=== PATIENT | female | born 1960 | race African-American/Black ===

== ENCOUNTER → 2018-03-19 | Outpatient (CLI) | payer OTHER | END | disposition home or self-care (01) | LOC: ECHO 08:07 | DX: I48.0 Paroxysmal atrial fibrillation (principal); I08.1 Rheumatic disorders of both mitral and tricuspid valves | CPT/HCPCS: 93306 ==

== ENCOUNTER → 2018-12-26 | Outpatient (CLI) | payer OTHER ==
[~2018-12-26] MED LIST: CELE200C PO; GABA300C18 PO; TRAM50TA PO
--- NOTE | 2018-12-26 15:06 | KCIC ---
Bilateral digital screening mammograms with 3-D tomosynthesis: Reason for examination: Routine screening. Comparison is made to previous studies dated 08/25/2016 and 08/10/2014. Bilateral mammograms in CC and oblique projections were obtained with 2-D imaging and 3-D tomosynthesis imaging on a Siemens Inspiration unit and reviewed on the workstation. Interpretation was made with the benefit of CAD. The skin and nipples show no abnormalities. No abnormal axillary lymph nodes are seen. The breast parenchyma shows scattered fatty and fibroglandular density. (Breast density: Category B.) There are no dominant masses, suspicious calcifications or architectural distortion. Impression: No evidence of malignancy. Recommend routine screening. BI-RAD Category 1: Negative. "Our facility is accredited by the [employer] Mammography Program." This patient's information has been entered into a reminder system for the patient to be notified with the results of her examination and a target date for the next mammogram. Electronically signed by: Shania Joseph MD (12/26/2018 3:04 PM) [facility]
== END | disposition home or self-care (01) ==
LOC: KCIC MAMMO 13:49
PROVIDERS: ATTEND Family Medicine
DX: Z12.31 Encounter for screening mammogram for malignant neoplasm of breast (principal)
CPT/HCPCS: 77063; 77067

== ENCOUNTER → 2019-04-02 | Outpatient (CLI) | payer OTHER ==
--- NOTE | 2019-04-10 03:05 | EEG ---
DATE OF SERVICE: 04/02/2019 EEG NUMBER: [id number]. OBJECTIVE: This is a 59-year-old -[place] female patient with complaint of abnormal feeling of parosmia. An EEG was requested to help rule out seizure. METHODS: Twenty electrodes were applied according to the international 10-20 electrode placement system. EKG monitoring, hyperventilation, intermittent photic stimulation, monopolar and bipolar montages were routinely utilized. The record was obtained on a digital system with video monitoring. FINDINGS: 1. Background: The patient was recorded in the awake and drowsy states. No actual sleep state was recorded. The overall background amplitude is 10-20 microvolts. A posterior dominant rhythm of 8-10 Hz is observed. 2. Abnormalities: No specific epileptiform discharge or electrographic seizure is seen. No focal or diffuse slowing. 3. Activation: Hyperventilation was performed with fair efforts and normal response. Intermittent photic stimulation was performed with photic driving. No specific epileptiform discharge or electrographic seizure induced by hyperventilation or intermittent photic stimulation. IMPRESSION: This EEG is a normal study for the awake and drowsy states. No sleep state was recorded. No focal, lateralizing, specific epileptiform discharge or electrographic seizure is seen. ETIENNE DELGADO MD DR: HUYEN/herbie JOB#: [id number] / [id number] BI
== END | disposition home or self-care (01) ==
LOC: RT 07:43
PROVIDERS: ATTEND Psychiatry & Neurology Neurology
DX: G47.50 Parasomnia, unspecified (principal)
CPT/HCPCS: 95816

== ENCOUNTER → 2019-06-10 | Outpatient (CLI) | payer OTHER ==
--- NOTE | 2019-06-23 13:37 | EEG ---
DATE OF SERVICE: EEG REPORT EEG DATE: 06/10/2019 to 06/11/2019 EEG NUMBER: [id number] OBJECTIVE: This is a 59-year-old -[place] female patient with history of abnormal sense of smelling odors almost on a daily basis. EEG was requested to help rule out seizure. METHODS: A 22 electrodes were applied according to the international 10-20 electrode placement system. EKG monitoring, hyperventilation, intermittent photic stimulation, monopolar and bipolar montages are routinely utilized. The record was obtained on a digital system with video monitoring. This is a long-term video EEG study with a total video monitoring and EEG recording time of 24 hours and 17 minutes. FINDINGS: 1. Background: The patient was recorded in the awake, drowsy, and sleep states. The overall background amplitude is 10-30 microvolts. A posterior dominant rhythm of 8-9 Hz is observed. 2. Abnormalities: No specific epileptiform discharge or electrographic seizure is seen. No focal or diffuse slowing. 3. Activation: Hyperventilation was performed with good efforts and normal response. Intermittent photic stimulation was performed with photic driving. No specific epileptiform discharge or electrographic seizure induced by hyperventilation or intermittent photic stimulation. IMPRESSION: This is a long-term video EEG study with total video monitoring and EEG recording time of 24 hours and 17 minutes from 06/10/2019 to 06/11/2019. This long-term video EEG study is a normal study for the awake, drowsy, and sleep states. No focal, lateralizing, specific epileptiform discharge or electrographic seizure is seen. ETIENNE DELGADO MD DR: HUYEN/herbie JOB#: [id number] / [id number] BI
== END | disposition home or self-care (01) ==
LOC: SLPLAB 05:44
PROVIDERS: ATTEND Psychiatry & Neurology Neurology
DX: R43.8 Other disturbances of smell and taste (principal)
CPT/HCPCS: 95951

== ENCOUNTER → 2019-07-21 | Outpatient (CLI) | payer OTHER ==
[~2019-07-21] MED LIST changes: +CONTRAST GIVEN. MC PRN; +IOHEXOL 180 MG/ML 10 ML VIAL. IT ONE; +LIDOCAINE 1% Multi-Dose 20 ML VIAL. ID ONE
--- NOTE | 2019-07-21 16:06 | KCIC ---
Lumbar Myelogram History: Lumbar radiculopathy into the right leg for 2 years Technique: Patient was informed of the risks of the procedure to include pain, infection, bleeding, seizures, nerve root injury, and allergic reaction to the contrast. All questions were answered. Patient signed a written consent form for a lumbar myelogram. The patient was placed in a prone oblique position on the fluoroscopy table. External site of the lower back was prepped and draped in the usual sterile fashion. Betadine was utilized for cleansing solution. 1% lidocaine was utilized for local anesthesia at the anticipated site of puncture right L2-3 interlaminar space. A 19-gauge guiding needle was advanced into the soft tissues. Through the guiding needle, a 25 gauge Allan needle was advanced until there was return of cerebral spinal fluid. Approximately 15 cc of Omnipaque 180 were then injected during fluoroscopic visualization. The needles were removed. Bandage was applied. Fluoroscopic spot images including standing images were acquired of the lumbar spine. The patient was then transferred to the CT department for CT examination of the lumbar spine. There were no immediate complications. Fluoroscopy time: 1 minute 14 seconds, 19 images Findings: There is no evidence of myelographic block. There are lateral extradural defects bilaterally at L4-5, also anterior extradural defect at this level with mild to moderate attenuation of the thecal sac. There is grade 1 anterior spondylolisthesis at L4-5 fairly similar with flexion and extension. There is degenerative disc disease greatest at L5-S1 and to a lesser degree at L4-5. There are minimal anterior extradural defects L3-4 and L2-3. There are thoracic spinal stimulator leads. Impression: 1. There is anterior extradural defect as well as lateral extradural defects at L4-5 with mild to moderate attenuation of the thecal sac. There is grade 1 anterior spondylolisthesis at L4-5. There is degenerative disc disease greatest L4-5 and L5-S1. Electronically signed by: Martin Gaines MD (07/21/2019 4:03 PM) [facility]
--- NOTE | 2019-07-21 16:07 | KCIC ---
CT lumbar spine exam History: Low back pain, right radiculopathy Technique: CT imaging was performed of the lumbar spine after injection for lumbar myelogram. Multiplanar reconstruction images are submitted. Exposure: One or more of the following individualized dose reduction techniques were utilized for this examination: 1. Automated exposure control 2. Adjustment of the mA and/or kV according to patient size 3. Use of iterative reconstruction technique. Comparison: None Findings: Lumbar vertebral body stature is maintained. There is grade 1 anterior spondylolisthesis at L4-5 which is less apparent in the myelographic images, very minimal posterior subluxation L5 relative to S1. There is moderate to severe L5-S1 degenerative disc disease, minimally at L4-5 and L2-L3. Conus terminates at L1-2. There are thoracic spinal stimulator leads not fully included, course into the posterior aspect of the spinal canal at the T12-L1 level. There is very mild lumbar dextroscoliosis. T12-L1: Neural foramina and spinal canal are adequate. L1-L2: Spinal canal and neural foramina are adequate. There is mild facet hypertrophic change. L2-L3: There is prominence of posterior epidural fat centrally, mild buckling of the ligamentum flavum, and mild to moderate facet degenerative change. There is minimal disc osteophyte complex indenting the ventral thecal sac greater in the left lateral recess, spinal canal not significantly narrowed. There is mild to moderate narrowing of the inferior left neural foramen by disc osteophyte complex, near the extraforaminal left L2 nerve root without significant impingement. Right neural foramen is overall adequate. L3-L4: There is minimal disc osteophyte complex. There is mild buckling of the ligamentum flavum and moderate facet degenerative change. Spinal canal is adequate. There is mild narrowing of the inferior right neural foramen by facet, left neural foramen overall adequate. L4-L5: There is moderate to severe facet degenerative change and mild buckling of the ligamentum flavum. There is minimal disc osteophyte complex and bulge indenting the ventral thecal sac, overall mild narrowing of the far lateral recesses bilaterally. There is fairly severe narrowing of the right neural foramen including more distally, disc osteophyte complex contacting the undersurface of exiting right L4 nerve root extending to the proximal extraforaminal region. There is also moderate to severe narrowing of the left neural foramen by facet and disc osteophyte complex which is near the proximal extraforaminal left L4 nerve root. L5-S1: There is posterior disc osteophyte complex, near the descending S1 nerve roots without significant neural impingement or spinal stenosis. There is mild to moderate facet degenerative change greater on the left. There is moderate to severe narrowing greater distally of the left neural foramen in part from disc osteophyte complex contacting the exiting left L5 nerve root. There is mild narrowing of the right neural foramen. Impression: 1. There is multilevel neural foramina compromise, more significant narrowing right greater than left at L4-5 and on the left at L5-S1 as described in part from disc osteophyte complexes contacting the exiting nerve roots. 2. There is grade 1 anterior spondylolisthesis at L4-5 somewhat less apparent than myelographic images. There is very minimal posterior subluxation L5 relative to S1, multilevel facet degenerative change. 3. There is degenerative disc disease greatest at L5-S1 and and to lesser degree at L4-5. 4. There is mild narrowing of the far lateral recesses bilaterally at L4-5. Electronically signed by: Martin Gaines MD (07/21/2019 4:04 PM) [facility]
== END | disposition home or self-care (01) ==
LOC: KCIC 08:52
PROVIDERS: ATTEND Neurological Surgery
DX: M51.16 Intervertebral disc disorders with radiculopathy, lumbar region (principal)
CPT/HCPCS: 62284; 72132; Q9965; 72265

== ENCOUNTER → 2020-03-04 | Outpatient (CLI) | payer OTHER ==
[~2020-03-04] MED LIST changes: -CONTRAST GIVEN. MC PRN; -IOHEXOL 180 MG/ML 10 ML VIAL. IT ONE; -LIDOCAINE 1% Multi-Dose 20 ML VIAL. ID ONE
--- NOTE | 2020-03-04 09:54 | CARD ---
MR#: [id number] Date of Study: 03/04/2020 Ordering Physician: ISAURA KOHLI, Referring Physician: ISAURA KOHLI, Tech: Ree Velacyrus APPROVED REPORT EXAM: Two-dimensional and M-mode echocardiogram with Doppler and color Doppler. Other Information Quality : AverageHR: 74bpm Technically limited study due to body habitus. INDICATION Atrial Fibrillation 2D DIMENSIONS RVDd2.9 (2.9-3.5cm)Left Atrium(2D)3.3 (1.6-4.0cm) IVSd1.3 (0.7-1.1cm)Aortic Root(2D)3.3 (2.0-3.7cm) LVDd5.0 (3.9-5.9cm)LVOT Diameter2.2 (1.8-2.4cm) PWd1.4 (0.7-1.1cm)LVDs2.5 (2.5-4.0cm) FS (%) 49.3 %SV95.2 ml LVEF(%)60.0 (>50%) Aortic Valve AoV Peak Kyle.135.5cm/sAoV VTI28.5cm AO Peak GR.7.3mmHgLVOT Peak Kyle.102.7cm/s LVOT VTI 23.16cmAO Mean GR.4mmHg LEAH (VMAX)1.55jq9CQN (VTI)3.00cm2 Mitral Valve MV E Kpzurrzx11.5cm/sMV DECEL BIEW015do MV A Utuvbsuq13.4cm/sMV E Mean Gr.2mmHg MV FDI35vrU/A Ratio1.2 MVA (PHT)3.50cm2 TDI E/Lateral E'8.9E/Medial E'10.6 Pulmonary Valve PV Peak Pehudpsb25.0cm/sPV Peak Grad.3mmHg Tricuspid Valve TR P. Czxkmhdx768ls/sRAP AVTSTOPJ0xfYe TR Peak Gr.47yqYfNWEM72gvNx Pulmonary Vein S1 Bxdxclsb27.4cm/sD2 Gebtowkg23.5cm/s PVa pekxudur853bbxn LEFT VENTRICLE The left ventricle is normal size. There is mild to moderate concentric left ventricular hypertrophy. The left ventricular systolic function is normal and the ejection fraction is within normal range. T he Ejection Fraction is 55%. There is grossly normal LV segmental wall motion. Transmitral Doppler fl ow pattern is Grade II-pseudonormal filling dynamics. RIGHT VENTRICLE The right ventricle is normal size. There is normal right ventricular wall thickness. The right ventr icular systolic function is normal. ATRIA The left atrium size is normal. The right atrium size is normal. The interatrial septum is intact wit h no evidence for an atrial septal defect or patent foramen ovale as noted on 2-D or Doppler imaging. AORTIC VALVE The aortic valve is normal in structure and function. Doppler and Color Flow revealed trace aortic re gurgitation. There is no significant aortic valvular stenosis. MITRAL VALVE The mitral valve is normal in structure and function. There is no evidence of mitral valve prolapse. There is no mitral valve stenosis. Doppler and Color-flow revealed trace mitral regurgitation. TRICUSPID VALVE The tricuspid valve is normal in structure and function. Doppler and Color Flow revealed trace tricus pid regurgitation with an estimated PAP of 34 mmHg. There is no tricuspid valve stenosis. PULMONIC VALVE The pulmonic valve is not well visualized. Doppler and Color Flow revealed trace pulmonic valvular re gurgitation. There is no pulmonic valvular stenosis. GREAT VESSELS The aortic root is normal in size. The ascending aorta is normal in size. The IVC is normal in size a nd collapses >50% with inspiration. PERICARDIAL EFFUSION There is no evidence of significant pericardial effusion. Critical Notification Critical Value: No <Conclusion> The left ventricular systolic function is normal and the ejection fraction is within normal range. Th e Ejection Fraction is 55%. There is grossly normal LV segmental wall motion. Signed by : Damien Dorantse, Electronically Approved : 03/04/2020 09:54:11
== END ==
LOC: ECHO 07:52
PROVIDERS: ATTEND Internal Medicine Cardiovascular Disease
DX: I51.7 Cardiomegaly (principal); I48.0 Paroxysmal atrial fibrillation
CPT/HCPCS: 93306

== ENCOUNTER → 2021-01-13 | Outpatient (CLI) | payer OTHER ==
--- NOTE | 2021-01-13 13:04 | KCIC ---
Bilateral digital screening mammograms with 3-D tomosynthesis: Reason for examination: Routine screening. Comparison is made to previous studies dated back to 08/10/2014. Bilateral mammograms in CC and oblique projections were obtained with 2-D imaging and 3-D tomosynthes is imaging on a [employer] Inspiration unit and reviewed on the workstation. Interpretation was made with the benefit of CAD. The skin and nipples show no abnormalities. No abnormal axillary lymph nodes are seen. The breast par enchyma is predominantly fatty. (Breast density: Category A.) There are no dominant masses, suspiciou s calcifications or architectural distortion. Impression: No evidence of malignancy. Recommend routine screening. BI-RAD Category 1: Negative. "Our facility is accredited by the [employer] Mammography Program." This patient's information has been entered into a reminder system for the patient to be notified wit h the results of her examination and a target date for the next mammogram. Electronically signed by: Shania Joseph MD (01/13/2021 1:02 PM) [id number]
== END ==
LOC: KCIC MAMMO 11:08
PROVIDERS: ATTEND Family Medicine
DX: Z12.31 Encounter for screening mammogram for malignant neoplasm of breast (principal)
CPT/HCPCS: 77063; 77067

== ENCOUNTER → 2021-03-07 | Outpatient (CLI) | payer OTHER ==
[~2021-03-07] MED LIST changes: +REGADENOSON 0.4 MG/5 ML DISP.SYRIN. IV ONE
--- NOTE | 2021-03-07 17:35 | CARD ---
MR#: [id number] Date of Study: 03/07/2021 Ordering Physician: ISAURA KOHLI, Referring Physician: Talia CHENG: [facility] APPROVED REPORT EXAM: Two-dimensional and M-mode echocardiogram with Doppler and color Doppler. Other Information Quality : AverageHR: 87bpm Rhythm : NSR INDICATION Atrial Fibrillation RISK FACTORS Obesity Family History 2D DIMENSIONS Left Atrium(2D)4.6 (1.6-4.0cm)IVSd1.2 (0.7-1.1cm) Aortic Root(2D)3.3 (2.0-3.7cm)LVDd4.9 (3.9-5.9cm) LVOT Diameter1.9 (1.8-2.4cm)PWd1.3 (0.7-1.1cm) LVDs3.4 (2.5-4.0cm)FS (%) 30.7 % SV65.5 mlLVEF(%)58.0 (>50%) Aortic Valve AoV Peak Kyle.193.1cm/sAoV VTI38.2cm AO Peak GR.14.9mmHgLVOT Peak Kyle.169.5cm/s AO Mean GR.8mmHgAVA (VMAX)2.47cm2 Mitral Valve MV E Ioqwbtyr680.4cm/sMV E Peak Gr.6mmHg MV DECEL TPIB633wpWG A Gdjxvlpr66.1cm/s MV E Mean Gr.3mmHgE/A Ratio1.1 MV A Auwkvaji955se Pulmonary Valve PV Peak Hjefacjk46.1cm/s Tricuspid Valve TR P. Iofgstnm111af/sTR Peak Gr.37mmHg Pulmonary Vein S1 Ajhxcuss29.3cm/sD2 Fnaodfqw26.9cm/s PVa qihpaggk787esxp LEFT VENTRICLE The left ventricle is normal size. There is mild concentric left ventricular hypertrophy. The left ve ntricular systolic function is normal and the ejection fraction is within normal range. Ventricular e jection fraction is 55 to 60%. There is normal LV segmental wall motion. The left ventricular diastol ic function and filling is normal for age. RIGHT VENTRICLE The right ventricle is normal size. There is normal right ventricular wall thickness. The right ventr icular systolic function is normal. ATRIA The left atrium is mildly dilated. The right atrium size is normal. AORTIC VALVE The aortic valve is normal in structure and function. Doppler and Color Flow revealed no significant aortic regurgitation. There is no significant aortic valvular stenosis. There is no aortic valvular v egetation. MITRAL VALVE The mitral valve is normal in structure and function. There is no evidence of mitral valve prolapse. There is no mitral valve stenosis. Doppler and Color-flow revealed mild mitral regurgitation. TRICUSPID VALVE The tricuspid valve is normal in structure and function. Doppler and Color Flow revealed trace tricus pid regurgitation. There is no tricuspid valve prolapse or vegetation. There is no tricuspid valve st enosis. PULMONIC VALVE The pulmonary valve is normal in structure and function. Doppler and Color Flow revealed no pulmonic valvular regurgitation. There is no pulmonic valvular stenosis. GREAT VESSELS The aortic root is normal in size. The pulmonary artery is normal. PERICARDIAL EFFUSION There is no pleural effusion. There is no evidence of significant pericardial effusion. Critical Notification Critical Value: No <Conclusion> The left ventricle is normal size. The left ventricular systolic function is normal and the ejection fraction is within normal range. Ventricular ejection fraction is 55 to 60%. There is mild concentric left ventricular hypertrophy. Doppler and Color Flow revealed no significant aortic regurgitation. There is no significant aortic valvular stenosis. Doppler and Color-flow revealed mild mitral regurgitation. Doppler and Color Flow revealed trace tricuspid regurgitation. Signed by : Armando Harrison MD Electronically Approved : 03/07/2021 17:34:32
--- NOTE | 2021-03-09 10:48 | RAD ---
MR#: [id number] Date of Study: 03/08/2021 Ordering Physician: ISAURA KOHLI, Referring Physician: ZACK CHENG Tech: ANGIE Escalante, ARRT (R) (N) APPROVED REPORT Test Type: Pharmacological Stress Nurse/Tech: Mariam Arciniega R.N. Test Indications: paroxysmal atrial fibrillation Cardiac History: afib Medications: see ehr Medical History: see ehr Resting ECG: sr Resting Heart Rate: 81 bpm Resting Blood Pressure: 175/84mmHg Pretest Chest Pain: No chest pain Nurse/Tech Notes lungs cta, heart tones regular Consent: The procedure was explained to the patient in lay terms. Informed consent was witnessed. Connor eout was entered into [employer]. History and Stress Test performed by RT Pelon (Chandler) (N) Pharm. Details Pharmacologic stress testing was performed using 0.4mg per 5ml of regadenoson given intravenously ove r 7-10 seconds. Stress Symptoms No chest pain or symptoms. POST EXERCISE Reason for Termination: Infusion complete Target HR: No Max HR: 100 bpm Max Blood Pressure: 218/106mmHg Chest Pain: No. Arrhythmia: No. ST Change: No. INTERPRETATION Stress EKG Conclusion: The resting EKG shows nonspecific ST-T wave changes. The stress EKG shows no significant changes from baseline. No EKG evidence of stress-induced ischemia. Imaging Protocol IMAGE PROTOCOL: Rest Tc-99m/stress Tc-99m 2 days Rest: Stress: Viability: Radiopharm.Tc99m KhbyysdnaXm69c Sestamibi Dose31.6mCi 30.1mCi Img Date 03/07/2021 03/08/2021 Inj-Img Cnmn49esh. 60min. Rest Admin Site:IV - Right AntecubitalAdministrator:RT Pelon (Chandler)(N) Stress Admin Site: IV - Right AntecubitalAdministrator: RT Pelon (R)(N) STRESS DATA End Diast. Vol.107.0mlAv. Heart Rate97.0bpm End Syst. Vol.17.0mlCO Index BSA0.0L/min Myocardial Gnbj410.0gEject. Aatoynsc80.0% Stress Rates Pk. Fill Rate5.10EDV/secLVtime Pk. Fill 142.39msec Pk. Empty Rate6.94ESV/secLVtime Pk. Yxlxx189.88msec 1/3 Pk. Fill1.16EDV/sec Stress Scores Regional WT1.00Summed WT3.00 Regional WM0.00Summed WM0.00 LV Perfusion The stress scans showed no significant defects. The rest scans showed no significant defects. Nuclear imaging shows no reversible ischemia or infarct. Wall Motion Left ventricular systolic function is normal with no regional wall motion abnormalities and an ejecti on fraction of greater than 70%. LV Perf. Quant 17 Seg. SSS6.00 17 Seg. SRS0.00 17 Seg. SDS6.00 Stress Defect Extent (% LAD)0.00Rest Defect Extent (% LAD)0.00Rev. Defect Extent (% LAD)0.00 Stress Defect Extent (% LCX) 50.00Rest Defect Extent (% LCX)0.00Rev. Defect Extent (% LCX)50.00 Stress Defect Extent (% RCA)0.00Rest Defect Extent (% RCA)0.00Rev. Defect Extent (% RCA)0.00 Stress Defect Extent (% GWEN)8.90Rest Defect Extent (% GWEN)0.00Rev. Defect Extent (% GWEN)8.90 Conclusion 1. No EKG evidence of stress-induced ischemia. 2. Nuclear imaging shows no reversible ischemia or infarct. 3. Normal left ventricular systolic function with an ejection fraction of greater than 70%. 4. Low risk Lexiscan nuclear stress test. Signed by : Armando Harrison MD Electronically Approved : 03/09/2021 10:47:32
== END ==
LOC: NM 10:02
PROVIDERS: ATTEND Internal Medicine Cardiovascular Disease
DX: I34.0 Nonrheumatic mitral (valve) insufficiency (principal); I48.0 Paroxysmal atrial fibrillation; I51.7 Cardiomegaly
CPT/HCPCS: 78452; 93017; 93306; A9500; J2785

== ENCOUNTER → 2021-11-29 | Outpatient (CLI) | payer OTHER ==
[~2021-11-29] MED LIST changes: -REGADENOSON 0.4 MG/5 ML DISP.SYRIN. IV ONE
--- NOTE | 2021-11-29 12:34 | CARD ---
MR#: [id number] Date of Study: 11/29/2021 Ordering Physician: ISAURA HERNANDEZ, Referring Physician: ISAURA HERNANDEZ, Tech: APPROVED REPORT PROCEDURE: Successful implantation of Medtronic reveal Linq loop recorder INDICATIONS: Atrial fibrillation management PROCEDURE DETAILS: An informed consent was obtained from patient. Patient was brought to the procedure suite and her le ft chest and shoulder were prepped and draped in the usual fashion. 20 mL of 2% lidocaine was infilt rated into the skin and subcutaneous tissues for local anesthesia. An incision was made in the left fourth intercostal space 1 inch from midsternal line and using the introducer and deploy provided wit h the kit, a Medtronic reveal Linq loop recorder [id number] was placed in the subcutaneous tissue. H emostasis was secured. Patient tolerated the procedure well. There were no immediate complications. At the end of procedure, the device showed sensing amplitude of 0.7. CONCLUSION: Successful implantation of Medtronic reveal Linq loop recorder for atrial fibrillation management. Signed by : Isaura Hernandez, Electronically Approved : 11/29/2021 12:34:32
== END | disposition home or self-care (01) ==
LOC: LINQ 10:38
PROVIDERS: ATTEND Internal Medicine Cardiovascular Disease
DX: I48.91 Unspecified atrial fibrillation (principal); M19.90 Unspecified osteoarthritis, unspecified site; Z90.710 Acquired absence of both cervix and uterus; Z98.890 Other specified postprocedural states; Z79.899 Other long term (current) drug therapy; Z87.891 Personal history of nicotine dependence; Z88.5 Allergy status to narcotic agent; Z88.8 Allergy status to other drugs, medicaments and biological substances
CPT/HCPCS: 33285; C1764